=== PATIENT | female | born 1955 | race Caucasian/White ===

== ENCOUNTER → 2019-01-28 | Outpatient (CLI) | payer MEDICARE, OTHER, MEDICAID | END | disposition home or self-care (01) | LOC: NUC 09:20 | DX: E21.3 Hyperparathyroidism, unspecified (principal) | CPT/HCPCS: 78070 ==

== ENCOUNTER 2019-03-04 11:04 | Day surgery (SDC) | payer MEDICARE, OTHER ==
[2019-03-04] MEDS ORDERED: LIDOCAINE 100 MG SYRINGE (13:16)
[2019-03-04] MEDS ORDERED: PROPOFOL 40 ML (13:16)
[2019-03-04] MEDS ORDERED: FENTAnyl 50 MCG/ML VIAL (13:17)
== END 2019-03-04 15:55 | disposition home or self-care (01) ==
LOC: GIL 11:04
DX: K44.9 Diaphragmatic hernia without obstruction or gangrene (principal); K21.9 Gastro-esophageal reflux disease without esophagitis; K29.50 Unspecified chronic gastritis without bleeding; I10 Essential (primary) hypertension; E11.9 Type 2 diabetes mellitus without complications; J45.909 Unspecified asthma, uncomplicated; Z79.84 Long term (current) use of oral hypoglycemic drugs
CPT/HCPCS: 43239; 82962; 88305; 88312